=== PATIENT | male | born 1955 | race Two or more races ===

== ENCOUNTER 2021-08-31 18:26 | Emergency (ER) | payer SELFPAY ==
[~2021-08-31] VITALS: Ht 180.3 cm; Wt 87.1 kg
[2021-08-31 19:05] VITALS: BP 137/65
--- NOTE | 2021-08-31 19:10 | NUR ---
Patient does not wish to proceed with medical care recommended by Dr. Rivear. Patient given information related to possible complications, up to and including , which could occur as a result of leaving the hospital at this time. Patient verbalizes understanding of risks involved due to leaving against medical advice. Patient has signed AMA form.
--- NOTE | 2021-08-31 19:13 | NUR ---
RIGHT EYE ASSESSMENT: 20/30
== END 2021-08-31 19:14 | disposition left against medical advice (07) ==
LOC: ER 18:26
DX: S05.8X1A Other injuries of right eye and orbit, initial encounter (principal); H11.31 Conjunctival hemorrhage, right eye; W22.8XXA Striking against or struck by other objects, initial encounter; Y93.89 Activity, other specified; Y92.89 Other specified places as the place of occurrence of the external cause; Y99.8 Other external cause status